=== PATIENT | male | born 1995 | race Caucasian/White ===

== ENCOUNTER 2018-11-26 15:08 | Emergency (ER) | payer MEDICAID ==
[2018-11-26 15:18] VITALS: BP 124/79
[2018-11-26] MEDS ORDERED: FLUORESCEIN SODIUM 1 MG STRIP OP ONE (15:19)
[2018-11-26] MEDS ORDERED: PROPARACAINE 0.5% 15 ML OPHT DROP ONE (15:19)
--- NOTE | 2018-11-26 15:51 | EDPHY ---
H & P Time Seen by Provider: 11/26/18 15:23 HPI/ROS: Chief complaint. Foreign object in eye HPI. 23-year-old male presents with eye irritation and sense of foreign body in his left eye. Yesterday he was cutting [place] at with a cast shell grinder. He was wearing safety glasses but he was also wearing a face mask and felt that the mask pushed his safety glasses up a little bit. He felt some eye irritation and had a sense that there was something in his eye. It seemed to go away after some irrigation. Today however he has continued irritation. Vision is okay. He has no history of contact lens wearing, previous eye surgery. ROS 10 systems were reviewed and negative with the exception of the elements mentioned in the history of present illness Past Medical/Surgical History: Past medical history is significant for hernia, forearm fracture, allergies, depression/anxiety Social History: Single, nonsmoker, no alcohol Smoking Status: Never smoked Physical Exam: General Appearance: Alert pleasant well-developed male mild distress vitals are stable Eyes: Pupils equal round reactive. There does appear to be a superficial foreign body left lateral cornea. Eversion of the upper lid reveals no evidence of foreign body. Funduscopic exam is otherwise normal ENT, Mouth: Mucous membranes are moist. Respiratory: There are no retractions, lungs are clear to auscultation. Cardiovascular: Regular rate and rhythm. Gastrointestinal: Abdomen is soft and nontender, no masses, bowel sounds normal. Neurological: Awake and alert, sensory and motor exams grossly normal. Skin: Warm and dry, no rashes. Musculoskeletal: Neck is supple nontender. Extremities symmetrical, full range of motion. Psychiatric: Patient is oriented X 3, there is no agitation. Constitutional: Initial Vital Signs Temperature (C) 37.1 C 11/26/18 15:15 Heart Rate 85 11/26/18 15:15 Respiratory Rate 18 11/26/18 15:15 Blood Pressure 124/79 H 11/26/18 15:15 O2 Sat (%) 96 11/26/18 15:15 O2 Delivery Mode Room Air Allergies/Adverse Reactions: cephalexin Allergy (Verified 11/26/18 15:15) Home Medications: Medication Instructions Recorded Gentamicin 0.3% [Gentak 0.3% Opht 2 drops LEFTEYE QID #1 opht.btl 11/26/18 Drops] Medical Decision Making Procedures: flourescein and alcaine are instilled in the left eye. The eye is examined under slit lamp. There is a foreign body in the lateral aspect of the left cornea. It is removed with a moist and Q-tip. Re-examination under slit lamp again reveals no further foreign body and no residual rust ring. No evidence for globe perforation. The flourescein is then irrigated from the eye. Visual acuity left eye 20/20, right eye 20/15 ED Course/Re-evaluation: Patient and I discussed treatment plan including criteria for return importance of follow-up further evaluation. He expresses understanding and agreement Differential Diagnosis: I considered foreign body, abrasion. No evidence for globe perforation Departure - Departure Disposition: Home, Routine, Self-Care Clinical Impression: Foreign body, eye Qualifiers: Encounter type: initial encounter Laterality: left Qualified Code(s): T15.92XA - Foreign body on external eye, part unspecified, left eye, initial encounter Condition: Good Instructions: Eye Foreign Body (ED) Additional Instructions: Antibiotic eyedrops for the next 3 days Tylenol or ibuprofen for discomfort Return for worsening symptoms Follow-up with Ophthalmology in 2-3 days for continuing symptoms Referrals: NONE *PRIMARY CARE P,. [Primary Care Provider] - As per Instructions Polly Colin MD [Medical Doctor] - 2-3 days, if not improved Prescriptions: Gentamicin 0.3% [Gentak 0.3% Opht Drops] 2 drops LEFTEYE QID #1 opht.btl
== END 2018-11-26 16:02 | disposition home or self-care (01) ==
LOC: CED 15:08
PROC: 08C9XZZ Extirpation of Matter from Left Cornea, External Approach (ICD-10-PCS; principal; 2018-11-26)
DX: T15.02XA Foreign body in cornea, left eye, initial encounter (principal); W26.8XXA Contact with other sharp object(s), not elsewhere classified, initial encounter; Y92.9 Unspecified place or not applicable; Y99.9 Unspecified external cause status; Y93.89 Activity, other specified
CPT/HCPCS: 99283-ER

== ENCOUNTER 2019-02-05 23:26 | Emergency (ER) | payer MEDICAID ==
[2019-02-05 23:41] VITALS: BP 165/94
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
== END 2019-02-06 00:23 | disposition home or self-care (01) ==
LOC: CED 23:26
PROC: 2W3FX1Z Immobilization of Left Hand using Splint (ICD-10-PCS; principal; 2019-02-05)
DX: S60.222A Contusion of left hand, initial encounter (principal); S50.01XA Contusion of right elbow, initial encounter; S80.211A Abrasion, right knee, initial encounter; V00.181A Fall from other rolling-type pedestrian conveyance, initial encounter; Y93.51 Activity, roller skating (inline) and skateboarding; F17.200 Nicotine dependence, unspecified, uncomplicated
CPT/HCPCS: 73080-PO; 73130-PO; 99284-ER